=== PATIENT | female | born 1970 | race Hispanic/Latino ===

== ENCOUNTER 2019-04-14 01:15 | Emergency (ER) | payer BC, OTHER ==
[2019-04-14 01:45] LABS: Bilirubin Negative (Negative); Blood, Urine Trace (Negative); Clarity Clear (Clear); Glucose, Urine (Dipstick) Negative (Negative); Leukocyte Trace (Negative); Nitrite Negative (Negative); Protein, Urine (Dipstick) Negative (Neg-Trace); Urobilinogen 0.2 mg/dL (Less than 2)
[2019-04-14] MEDS ORDERED: Ondansetron PF 4 MG/2 ML Vial ONE (01:45)
[2019-04-14] MEDS ORDERED: Morphine 4 MG/ML VIAL ONE (01:45)
[2019-04-14 01:53] LABS: RBC/HPF 0-3 HPF (0-3); Squamous Epithelial 0-3 HPF (0-3); WBC/HPF None Seen HPF (0-3)
[2019-04-14 01:54] LABS: Bacteria/HPF None Seen HPF (None Seen)
[2019-04-14 01:55] LABS: #Lymphocytes 1.4 thou/uL (1.20-3.40); #Neutrophils 7.9 thou/uL (1.40-6.50); %Basophils 0.3 % (0.0-1.0); %Eosinophils 0.3 % (0.0-10.0); %Lymphocytes 13.9 % (21.0-51.0); %Monocytes 9.6 % (0.0-10.0); %Neutrophils 75.9 % (42.0-75.0); Hemoglobin 13.1 g/dL (12.0-16.0); Mean Corpuscular Hemoglobin 28.5 pg (27.0-31.0); Mean Corpuscular Volume 86.4 fL (78.0-98.0); Platelet Count 254 thou/uL (130-400); RBC Distribution Width 11.6 % (11.5-14.5); White Blood Cell (WBC) Count 10.4 thou/uL (4.8-10.8)
[2019-04-14 02:13] LABS: BHCG - Serum Negative (NEGATIVE); Pregs Control Bar Appear? YES (CONTROL BAR)
[2019-04-14 02:16] LABS: ALT (SGPT) 17 U/L (8-55); AST (SGOT) 15 U/L (5-34); Albumin 4.3 g/dL (3.5-5.0); Alkaline Phosphatase 96 U/L (40-150); Anion Gap 15 mmol/L (10-20); BUN (Urea Nitrogen) 12 mg/dL (7.0-18.7); Calc. Creatinine Clearance 0 mL/min (70-130); Calcium 9.7 mg/dL (7.8-10.44); Carbon Dioxide 23 mmol/L (22-29); Chloride 101 mmol/L (98-107); Estimated GFR-MDRD 74; Globulin 2.9 g/dL (2.4-3.5); Glucose 117 mg/dL (70-105); Lipase 10 U/L (8-78); Potassium 3.8 mmol/L (3.5-5.1); Protein, Total 7.2 g/dL (6.0-8.3); Sodium 135 mmol/L (136-145)
[2019-04-14] MEDS ORDERED: predniSONE 20 MG TAB ONE (04:15)
--- NOTE | 2019-04-14 07:27 | CT ---
CT ABDOMEN AND PELVIS WITH IV CONTRAST: Date: 04/14/19 INDICATION: Abdominal pain with nausea and diarrhea. COMPARISON: None. FINDINGS: There is a calcified granuloma in the left lower lobe with bibasilar atelectasis. No focal hepatic lesion is evident. The pancreas, adrenal glands, and kidneys appear within normal limits. There are calcified granuloma within the spleen. No free fluid or enlarged lymph nodes are seen within the upper abdomen. There is postsurgical change of appendectomy. The rectum, sigmoid colon, and descending colon are lar james decompressed. There is wall thickening involving the splenic flexure, transverse colon, ascendin g colon, and cecum. A tiny amount of free fluid is evident within the pelvis. Postsurgical change of a posterolateral interbody fusion of L3 through L5. No acute osseous abnormality is demonstrated. IMPRESSION: 1. Long segment colitis involving the cecum, ascending colon, transverse colon, and splenic flexure, suspicious for an infectious or inflammatory etiology. 2. Postsurgical change of an appendectomy and posterolateral interbody fusion of L3-L5. 3. Findings of prior granulomatous disease. 4. No drainable internal fluid collection demonstrated. POS: MARQUEZ
[2019-04-14] MEDS ORDERED: Iopamidol 370 76% 100 ML VIAL ONE (09:00)
== END 2019-04-14 06:04 | disposition home or self-care (01) ==
LOC: NAV ERS 01:15
DX: K52.9 Noninfective gastroenteritis and colitis, unspecified (principal); F32.9 Major depressive disorder, single episode, unspecified; Z79.899 Other long term (current) drug therapy
CPT/HCPCS: 36415; 74177; 80053; 81003; 81015; 83605; 83690; 84703; 85025; 96374; 96375; J2270; J2405; J7512; Q9967

== ENCOUNTER 2019-08-23 16:45 | Outpatient (CLI) | payer BC, OTHER ==
--- NOTE | 2019-08-23 17:08 | RAD ---
XR Hip Rt 2-3 View INDICATION: Right hip pain COMPARISON: None FINDINGS: Bones: No acute osseous abnormality. Bone mineralization appears within normal limits. Hip joint: Radiographically normal. SI joints and symphysis pubis: Radiographically normal. Intrapelvic contents: Scattered phleboliths Surrounding soft tissues: Radiographically normal. IMPRESSION: 1. No acute fracture or subluxation demonstrated.
== END 2019-08-23 16:46 | disposition home or self-care (01) ==
LOC: NAV RAD 16:45
PROVIDERS: ATTEND Nurse Practitioner Adult Health
DX: M25.551 Pain in right hip (principal)